=== PATIENT | male | born 1965 ===

== ENCOUNTER 2022-09-18 10:35 | Emergency (ER) | payer BC ==
[2022-09-18] MEDS ORDERED: Ibuprofen 600 MG Tab PO ONE (11:38)
[2022-09-18] MEDS ORDERED: Acetaminophen 325 MG Tab PO ONE (11:38)
[2022-09-18] MEDS ORDERED: Lidocaine 1% with EPINEPHrine 1:100,000 10 ML MDV INJECT ONE (11:39)
[2022-09-18] MEDS ORDERED: Bupivacaine 0.5% 10 ML SDV ONE (11:50)
[2022-09-18] MEDS ORDERED: Bupivacaine 0.5% 10 ML SDV INJECT ONE (12:08)
[2022-09-18 12:35] VITALS: BP 160/90; PULSE 78
== END 2022-09-18 12:34 | disposition home or self-care (01) ==
LOC: MW.ED 10:35
DX: S22.42XA Multiple fractures of ribs, left side, initial encounter for closed fracture (principal); E66.9 Obesity, unspecified; Z68.26 Body mass index [BMI] 26.0-26.9, adult; Z79.899 Other long term (current) drug therapy; Z90.49 Acquired absence of other specified parts of digestive tract; Z72.0 Tobacco use; Y99.0 Civilian activity done for income or pay
CPT/HCPCS: 71045; 99284; A9270; J3490